=== PATIENT | female | born 1965 | race Caucasian/White ===

== ENCOUNTER → 2021-01-29 | Day surgery (SDC) | payer OTHER ==
[~2021-01-29] MED LIST: CALTRATE PO; IBUPROFEN800 MG PO; LEVOCETIRIZINE D5 MG PO; MECLIZINE HCL25 MG PO; REQUIP0.25 MG PO; VITAMIN B-12 PO; VITAMIN C PO; VITAMIN D PO; ZINC PO
== END | disposition home or self-care (01) ==
LOC: OR 06:52
DX: C50.912 Malignant neoplasm of unspecified site of left female breast (principal); J44.9 Chronic obstructive pulmonary disease, unspecified; F17.210 Nicotine dependence, cigarettes, uncomplicated; Z79.1 Long term (current) use of non-steroidal anti-inflammatories (NSAID); Z79.899 Other long term (current) drug therapy
CPT/HCPCS: 71045; 77001; C1769; C1788; J0690; J1100; J1642; J2001; J2250; J2405; J2704; J3010; J7040; J7120

== ENCOUNTER 2021-02-17 13:47 | Outpatient (CLI) | payer OTHER ==
[~2021-02-17] VITALS: Ht 154.9 cm; Wt 84.8 kg
[~2021-02-17 13:47] MED LIST changes: -REQUIP0.25 MG PO
[2021-02-17 14:28] LABS: HEMOGLOBIN 6.2 gm/dl (12.3-15.3)
[2021-02-17] MEDS ORDERED: REQUIP0.25 MG PO (19:20)
== END 2021-02-18 03:00 | disposition home or self-care (01) ==
LOC: OPS 13:47 → OPSV 13:47 → MED SURG 4 16:23 → OPSV 02-18 03:00
PROVIDERS: Internal Medicine Hematology & Oncology
DX: D64.9 Anemia, unspecified (principal)
CPT/HCPCS: 36415; 36430; 36591; 85014; 85018; 86850; 86900; 86901; 86920; 96374; J1642; J1940; P9016